=== PATIENT | female | born 1965 | race Caucasian/White ===

== ENCOUNTER 2018-12-26 09:10 | Outpatient (CLI) | payer BC ==
--- NOTE | 2018-12-26 09:28 | RAD ---
RIGHT FOOT 3 VIEWS: Date: 12/26/18 HISTORY: Right foot pain, enthesopathy unspecified, focus on base of fifth metatarsal. FINDINGS/IMPRESSION: No fracture, dislocation, or bony destruction is seen. No enthesophyte seen at the base of the fifth metatarsal. There is soft tissue swelling adjacent to the base of the fifth metatarsal. POS: [facility]
== END 2018-12-26 09:11 | disposition home or self-care (01) ==
LOC: BICRAD 09:10
PROVIDERS: ATTEND Podiatrist
DX: M77.9 Enthesopathy, unspecified (principal); M79.89 Other specified soft tissue disorders

== ENCOUNTER 2023-12-28 10:23 | Outpatient (CLI) | payer BC | END 2023-12-28 10:24 | disposition home or self-care (01) | LOC: SCSRAD 10:23 | PROVIDERS: ATTEND Nurse Practitioner Family | DX: S69.91XA Unspecified injury of right wrist, hand and finger(s), initial encounter (principal); S52.571A Other intraarticular fracture of lower end of right radius, initial encounter for closed fracture ==